=== PATIENT | female | born 1960 ===

== ENCOUNTER 2018-12-08 10:56 | Day surgery (SDC) | payer OTHER ==
[~2018-12-08 10:56] MED LIST: Clindamycin Phosphate 600 MG in Sodium Chloride 0.9% 100 ML IV ONE; Lactated Ringers 1,000 ML IV SCH; Sodium Chloride 0.9% 10 ML Syringe FLUSH PRN
[2018-12-08] MEDS ORDERED: Midazolam 1 MG/ML 2 ML SDV IV ONE (10:57)
[2018-12-08] MEDS ORDERED: fentaNYL 100 MCG/2 ML SDV IV ONE (10:57)
[2018-12-08] MEDS ORDERED: Lidocaine 1% 30 ML SDV INJECT ONE ×4 (10:57→16:03)
[2018-12-08] MEDS ORDERED: Bupivacaine 0.5% 30 ML SDV INJECT ONE ×4 (10:57→16:03)
[2018-12-08] MEDS ORDERED: Propofol 1,000 MG/100 ML SDV IV ONE (10:57)
[2018-12-08] MEDS ORDERED: Ondansetron 4 MG/2 ML SDV IV ONE (10:57)
[2018-12-08] MEDS ORDERED: Ketorolac 30 MG/ML SDV IVPUSH ONE (10:57)
[2018-12-08] MEDS ORDERED: Lidocaine 1% 30 ML SDV ONE (13:08)
[2018-12-08] MEDS ORDERED: Bupivacaine 0.5% 30 ML SDV ONE (13:08)
[2018-12-08] MEDS ORDERED: Acetaminophen/oxyCODONE 325-5 MG Tab PO PRN (16:23)
--- NOTE | 2018-12-08 16:26 | PCM.OPNOTE ---
- General Post-Op/Procedure Note Date of Surgery/Procedure: 12/08/18 Operative Procedure(s): left foot 1st metatarsal osteotomy/bunionectomy, 2nd digit PIPJ arthrodesis, right foot 3rd digit tenotomy Pre Op Diagnosis: left foot painful bunion and 2nd hammertoe, right foot 3rd digit hammertoe Post-Op Diagnosis: [place] Anesthesia Technique: Local, MAC Primary Surgeon: Whitney Wall Anesthesia Provider: Armando Bolaños EBL in mLs: 10 Complications: none Condition: Good Free Text/Narrative:: Intake & Output 12/08/18 12/08/18 12/08/18 06:59 14:59 22:59 Intake Total 100 Balance 100 Pt tolerated procedure well and was transported to recovery with vascular status intact to b/l feet. [place] 2.7 non cannulated screws to 1st metatarsal, size 15 smart toe implant to 2nd toe right foot.
--- NOTE | 2018-12-09 23:18 | OR ---
DATE: 12/08/2018 PREOPERATIVE DIAGNOSES: 1. Left foot painful bunion. 2. Left foot hammertoe. 3. Right foot 3rd digit hammertoe. POSTOPERATIVE DIAGNOSES: 1. Left foot painful bunion. 2. Left foot hammertoe. 3. Right foot 3rd digit hammertoe. PROCEDURES PERFORMED: 1. Left foot 1st metatarsal osteotomy/bunionectomy, Jovanni type. 2. Left foot 2nd digit proximal interphalangeal joint hammertoe repair, arthrodesis. 3. Right foot 3rd digit hammertoe flexor tenotomy. ANESTHESIA: Local MAC with preoperative local block of 10 mL 1:1 mixture of 1% lidocaine plain and 0.5% Marcaine plain. TOURNIQUET TIME: 96 minutes, pneumatic ankle tourniquet. ESTIMATED BLOOD LOSS: Minimal. SPECIMEN: None. COMPLICATIONS: None. INDICATIONS: Mariam is a 58-year-old female, who presents for bilateral foot pain. She states that on the right foot, her 3rd toe is curling under the 2nd toe causing a painful callus. It hurts her when she is walking and even at night. She has to trim it down every other day or so. Otherwise, it becomes too painful. She does like to walk and wears a good [employer] tennis shoes. She has history of hammertoe corrections, digits 2 and 4 on the right foot and a bunionectomy on that foot, also bone spur excision on digits 1 and 2 on the left foot. She does have a painful bunion deformity on her left foot that bothers her, mostly with pressure and at night when she is trying to sleep. She also gets a painful corn to the 2nd toe between the digits, where she had that bone spur removed previously, but it still feels like that toe joint is prominent. This causes her pain. X-rays of the left foot reveals bunion deformity present with IM angle of 15 degrees, some arthritic changes of the 1st MTP, dorsal aspect, 2nd digit with prior head of the proximal phalanx resection, now with hypertrophic bone formation. On the right foot, she has history of bunionectomy with screw intact. There is a 3rd digit hammertoe. The patient voiced good understanding of proposed procedure and possible complications, elects to have surgery at this time. DESCRIPTION OF PROCEDURE: The patient was taken to the operating room lying in supine position. After adequate anesthesia induction as described above, first the left foot was prepped and draped in usual sterile fashion. A pneumatic ankle tourniquet was inflated to 225 mmHg. Attention was then directed to the dorsal aspect of the left foot overlying the 1st metatarsophalangeal joint. A linear incision was made overlying the joint and 1st metatarsal. Sharp and blunt dissection were performed down to the level of the joint capsule with care to gently retract all neurovascular bundles. An inverted L capsulotomy was made, and the capsule was reflected to expose the distal 1st metatarsal. A hypertrophic medial eminence was noted at this time and was resected with a sagittal saw. Blunt dissection was performed in the 1st interspace at the level of the fibular sesamoid, and the adductor hallucis tendon was transected. A sagittal saw was used to make a Chevron-type osteotomy with a long dorsal arm angulated in a fashion that would allow maintenance of length with lateral transposition of the capital fragment. The capital fragment was then transposed laterally 7 mm and impacted to bring the hallux in a rectus alignment. A 0.62 inch K-wire was used as temporary fixation. Two fully-threaded [place] 2.7 screws were then placed using AO technique at the osteotomy site. Temporary fixation was removed and the osteotomy site was noted to be stable with axial, valgus, varus forces applied with fluid range of motion of 1st MTPJ. The fluoroscopy was used throughout the procedure to verify proper reduction of the deformity and screw fixation. The 1st MTPJ was inspected and there was noted to be a couple of small cartilage defects at the plantar aspect and these were drilled with a K-wire. The surgical area was flushed with copious amounts of sterile saline. A medial capsulorrhaphy was performed and capsular closure was completed with 3-0 Vicryl. Skin closure was completed with 4-0 nylon. The hallux was noted to be in a rectus alignment at this time. Attention was directed to the 2nd digit, where a 3 cm linear incision was made overlying the proximal interphalangeal joint. Sharp and blunt dissections were performed down to the level of the joint. A transverse tenotomy capsulotomy was made at the proximal interphalangeal joint. There was a large area of hypertrophic bone in this area, which was removed with a sagittal saw. The cartilage and fibrotic tissue from the base of the middle phalanx were also removed. A Smart Toe implant measuring 15 with a 10-degree angle was placed at the PIPJ and good compression was noted at the site. Fluoroscopy was used to verify adequate position of the implant. The toe was in a straight rectus alignment at this time. The area was irrigated with copious amounts of sterile saline and the tendon was repaired with 3-0 Vicryl, and skin closure was completed with 4-0 nylon. The area was then dressed with Xeroform to the incision site, fluffs, Webril, and a well-padded compression dressing. She will be placed nonweightbearing on that foot. Attention was then directed over to the right foot, which was prepped and draped. A small stab incision was made at the plantar aspect of the right 3rd digit and the flexor tendon was released. The toe was able to be completely reduced straight after the tenotomy. Skin was closed with a 4-0 nylon stitch. The 3rd toe was noted to be in straight rectus alignment. It was then felt that there was no prominence between those toes, and so nothing was needed to be done to that 2nd toe. The area was dressed with Xeroform to the incision site, gauze, Webril, and an Sukhjinder wrap. The patient tolerated the procedure well and anesthesia well and left the operating room for recovery with vital signs stable in good condition. Vascular status intact to both feet. The patient was then discharged home once she met hospital discharge requirements. [facility] /[id number]
== END 2018-12-08 17:55 | disposition home or self-care (01) ==
LOC: DL.SDS 10:56
PROVIDERS: ATTEND Podiatrist
DX: M21.612 Bunion of left foot (principal); M20.42 Other hammer toe(s) (acquired), left foot; M20.41 Other hammer toe(s) (acquired), right foot; I10 Essential (primary) hypertension; E03.9 Hypothyroidism, unspecified; E78.5 Hyperlipidemia, unspecified; G43.909 Migraine, unspecified, not intractable, without status migrainosus; Z91.048 Other nonmedicinal substance allergy status; Z88.0 Allergy status to penicillin; Z79.899 Other long term (current) drug therapy
CPT/HCPCS: 28232; 28285; 28296; C1713; C1776; J1885; J2001; J2250; J2405; J2704; J3010; J3490; J7050; J7120